=== PATIENT | male | born 1995 | race Two or more races ===

== ENCOUNTER 2021-05-17 11:43 | Emergency (ER) | payer SELFPAY ==
[~2021-05-17] VITALS: Ht 162.6 cm; Wt 52.3 kg
[2021-05-17 13:01] LABS: GLUCOMETER DEV NAME(LOC) ERT.5; GLUCOSE,POINT OF CARE 84 MG/DL (70-110)
[2021-05-17] MEDS ORDERED: KETOROLAC TROMETHAMINE 10 MG TABLET PO ONE (14:00)
[2021-05-17] MEDS ORDERED: LevETIRAcetam 500 MG TABLET PO ONE (15:00)
[2021-05-17 16:18] VITALS: BP 111/61
== END 2021-05-17 17:03 | disposition home or self-care (01) ==
LOC: EMS 11:49
DX: S40.011A Contusion of right shoulder, initial encounter (principal); R56.9 Unspecified convulsions; Z88.0 Allergy status to penicillin; Z88.8 Allergy status to other drugs, medicaments and biological substances; W18.39XA Other fall on same level, initial encounter; Y93.89 Activity, other specified; Y92.89 Other specified places as the place of occurrence of the external cause; Y99.8 Other external cause status
CPT/HCPCS: 70450; 71250; 82962; 99284